=== PATIENT | female | born 1985 | race Caucasian/White ===

== ENCOUNTER 2021-05-17 22:51 | Observation (INO) | payer OTHER ==
[2021-05-17 23:00] VITALS: BMI 33.9
[2021-05-17] MEDS ORDERED: Ondansetron ODT 4 MG TAB PO PRN (23:05)
[2021-05-17] MEDS ORDERED: Enoxaparin Sodium 40 MG/0.4 ML SYRINGE SC SCH (23:59)
[2021-05-18] MEDS: Morphine 4 MG/ML VIAL SLOW IVP PRN ×4 (00:02→16:39)
[2021-05-18] MEDS: 1/2 NS w/KCL 20 mEq 1,000 ML IV SCH ×3 (00:03→17:36)
[2021-05-18] MEDS: Ondansetron PF 4 MG/2 ML Vial IVP PRN ×3 (02:50→17:49)
[2021-05-18 05:06] LABS: Anion Gap 12 mmol/L (10-20); BUN (Urea Nitrogen) 11 mg/dL (7.0-18.7); Calc. Creatinine Clearance 153 mL/min (70-130); Calcium 8.3 mg/dL (7.8-10.44); Carbon Dioxide 22 mmol/L (22-29); Chloride 108 mmol/L (98-107); Glucose 94 mg/dL (70-105); Magnesium 1.6 mg/dL (1.6-2.6); Potassium 3.9 mmol/L (3.5-5.1); Sodium 138 mmol/L (136-145)
[2021-05-18 05:07] LABS: #Eosinphils 0.2 10x3/uL (0.0-0.5); #Monocytes 0.7 10x3/uL (0.0-1.1); #Neutrophils 3.3 10x3/uL (1.5-8.4); %Basophils 0.3 % (0.0-2.0); %Eosinophils 2.2 % (0.0-6.0); %Monocytes 9.4 % (0.0-10.0); Mean Corpuscular HGB CONC 31.8 g/dL (32.0-36.0); Mean Corpuscular Hemoglobin 29.3 pg (27.0-33.0); Mean Corpuscular Volume 92.2 fl (81.6-98.3); Mean Platelet Volume 12.1 fl (7.4-10.4); Platelet Count 208 10x3/uL (150-450); RBC Distribution Width 12.7 % (11.5-14.5); Red Blood Cell (RBC) Count 4.09 10x6/uL (3.90-5.03)
[2021-05-18 07:41] LABS: ALT (SGPT) 20 U/L (8-55); AST (SGOT) 16 U/L (5-34); Albumin 3.7 g/dL (3.5-5.0); Alkaline Phosphatase 66 U/L (40-110); Bilirubin, Direct 0.3 mg/dL (0.1-0.3); Protein, Total 6.3 g/dL (6.0-8.3)
[2021-05-18 07:51] LABS: SARS-CoV-2 NAA Rapid Test DETECTED (NotDetected)
[2021-05-18] MEDS ORDERED: Acetaminophen 325 MG TAB PO PRN (08:12)
[2021-05-18] MEDS ORDERED: Piperacillin/Tazobactam 3.375 GM in Sodium Chloride 0.9% 100 ML IVPB SCH ×2 (12:00→16:00)
[2021-05-18] MEDS ORDERED: EPINEPHrine 1 MG/ML AMP ONE (12:34)
[2021-05-18] MEDS ORDERED: Bupivacaine PF 0.5% 30 ML VIAL ONE (12:34)
[2021-05-18 12:56] VITALS: BP 105/61; TEMP 98.2
[2021-05-18 13:20] LABS: Hemoglobin A1c 5.4 % (4.0-6.0)
[2021-05-18] MEDS ORDERED: Rocuronium Bromide 10 MG/ML (10ML VIAL) ONE (13:49)
[2021-05-18] MEDS ORDERED: Fentanyl 100 MCG/2 ML VIAL ONE (13:49)
[2021-05-18] MEDS ORDERED: Ondansetron PF 4 MG/2 ML Vial ONE (13:49)
[2021-05-18] MEDS ORDERED: PROPOFOL 20 ML ONE ×2 (13:49→14:23)
[2021-05-18] MEDS ORDERED: Lidocaine 2% PF 5 ML VIAL ONE (13:49)
[2021-05-18] MEDS ORDERED: Dexamethasone 20 MG/5 ML VIAL ONE (13:49)
[2021-05-18] MEDS ORDERED: Dexamethasone 4 mg/ml Vial ONE (13:55)
[2021-05-18] MEDS ORDERED: HYDROmorphone 0.5 MG/0.5 ML SYRINGE ONE (15:09)
[2021-05-18] MEDS ORDERED: Promethazine HCl 25 MG/ML VIAL ONE (15:23)
[2021-05-18] MEDS ORDERED: Enoxaparin Sodium 40 MG/0.4 ML SYRINGE SC SCH (21:00)
== END 2021-05-18 19:07 | disposition home or self-care (01) ==
LOC: CSHTELE 22:51 → INTOOBSV 22:51
PROVIDERS: ADMIT Family Medicine; ATTEND Family Medicine
PROC: 0FT44ZZ Resection of Gallbladder, Percutaneous Endoscopic Approach (ICD-10-PCS; principal; 2021-05-17)
DX: K81.1 Chronic cholecystitis (principal); Z79.899 Other long term (current) drug therapy
CPT/HCPCS: 36415; 71045; 80048; 80076; 83036; 83690; 83735; 85025; 88304; 96372; 96374; 96375; 96376; C1776; G0378; J0171; J1100; J1170; J1650; J2001; J2270; J2405; J2543; J2550; J2704; J3010; J3480; J3490; S0020; U0002

== ENCOUNTER → 2022-04-10 | Day surgery (SDC) | payer BC | LOC: CSHULT 12:23 | PROVIDERS: ATTEND Obstetrics & Gynecology | PROC: 0H9U3ZX Drainage of Left Breast, Percutaneous Approach, Diagnostic (ICD-10-PCS; principal; 2022-04-10) | DX: N60.92 Unspecified benign mammary dysplasia of left breast (principal); N60.22 Fibroadenosis of left breast; R92.8 Other abnormal and inconclusive findings on diagnostic imaging of breast | CPT/HCPCS: 19083; 88305; 88341; 88342; 88360 ==

== ENCOUNTER 2022-05-03 06:21 | Day surgery (SDC) | payer BC ==
[2022-05-01 10:35] VITALS: BMI 28.4
[2022-05-03] MEDS ORDERED: Midazolam HCl 2 mg/2 ml Vial ONE (09:16)
[2022-05-03] MEDS ORDERED: Bupivacaine HCl 0.5%/Epinephrine 1:200,000/PF 30 ml Vial ONE (09:30)
[2022-05-03] MEDS ORDERED: CEFAZOLIN 2 GM VIAL ONE (09:32)
[2022-05-03] MEDS ORDERED: Promethazine HCl 25 MG/ML VIAL ONE ×2 (09:39→11:48)
[2022-05-03] MEDS ORDERED: Fentanyl 100 MCG/2 ML VIAL ONE ×2 (09:40→09:58)
[2022-05-03] MEDS ORDERED: Famotidine/PF 20 mg/2ml Vial ONE (09:40)
[2022-05-03] MEDS ORDERED: Dexamethasone 20 MG/5 ML VIAL ONE (09:53)
[2022-05-03] MEDS ORDERED: Ondansetron PF 4 MG/2 ML Vial ONE (09:54)
[2022-05-03] MEDS ORDERED: Acetaminophen 325 MG TAB PO PRN (10:48)
[2022-05-03] MEDS ORDERED: HYDROcodone/Acetaminophen 5/325 mg Tablet PO PRN (10:48)
== END 2022-05-03 12:25 | disposition home or self-care (01) ==
LOC: CSHSDC 06:21
PROVIDERS: ATTEND Surgery
PROC: 0HBU0ZZ Excision of Left Breast, Open Approach (ICD-10-PCS; principal; 2022-05-03)
DX: N60.82 Other benign mammary dysplasias of left breast (principal); E28.2 Polycystic ovarian syndrome; F41.9 Anxiety disorder, unspecified; E66.9 Obesity, unspecified; Z68.31 Body mass index [BMI] 31.0-31.9, adult; Z79.899 Other long term (current) drug therapy; Z88.8 Allergy status to other drugs, medicaments and biological substances; Z80.3 Family history of malignant neoplasm of breast
CPT/HCPCS: 19281; 76098; 88307; J1100; J2250; J2405; J2550; J3010; S0028